=== PATIENT | male | born 1950 | race African-American/Black ===

== ENCOUNTER 2022-06-09 13:44 | Inpatient (IN) | payer MEDICARE, MEDICAID ==
[~2022-06-09] VITALS: Ht 182.9 cm; Wt 75.3 kg
[2022-06-09] MEDS ORDERED: PIPERACILLIN/TAZ 3.375G PREMIX 50 ML IV ONE (14:00)
[2022-06-09] MEDS ORDERED: VANCOMYCIN 1G PREMIX 200 ML IV NR (14:00)
[2022-06-09] MEDS ORDERED: SODIUM CHLORIDE 0.9% 1000ML BAG (SEPSIS BOLUS) IV ONE (14:00)
[2022-06-09] MEDS ORDERED: VANCOMYCIN 1G PREMIX 200 ML IV ONE (14:00)
[2022-06-09 15:57] LABS: BASOPHILS % 0.6 % (0.0-2.0); EOSINOPHILS % 0.8 % (0.0-5.0); HEMATOCRIT. 29.7 % (42.0-52.0); HEMOGLOBIN. 9.4 g/dL (14.0-18.0); LYMPHOCYTES % 13.4 % (20.0-50.0); MEAN CORPUSCULAR HEMOGLOBIN 30.3 pg (28.0-32.0); MEAN CORPUSCULAR VOLUME 96.2 fL (80.0-94.0); MEAN PLATELET VOLUME 9.6 fl (7.4-10.4); MONOCYTES % 12.8 % (2.0-8.0); NEUTROPHILS % 72.4 % (40.0-76.0); PLATELET 184 x1000/uL (130-400); RED BLOOD CELL COUNT 3.09 mill/uL (4.7-6.1); RED CELL DISTRIBUTION WIDTH 17.7 % (11.6-14.6)
[2022-06-09 15:59] LABS: CHLORIDE 126 mEq/L (98-107)
[2022-06-09 16:17] LABS: INR 1.1; PROTHROMBIN TIME 11.9 sec (9.6-11.0)
[2022-06-09] MEDS ORDERED: ASPIRIN 81MG TABLET PO ONE (17:45)
[2022-06-09] MEDS ORDERED: DOCUSATE SODIUM 100MG CAPSULE PO PRN (19:30)
[2022-06-09] MEDS ORDERED: IPRATROPIUM/ALBUTEROL 0.5-3(2.5)MG/3ML NEB HHN PRN (19:30)
[2022-06-09] MEDS ORDERED: ONDANSETRON HCL 4MG/2ML INJ IV PRN (19:30)
[2022-06-09] MEDS ORDERED: ACETAMINOPHEN 325MG TABLET PO PRN ×2 (19:30)
[2022-06-09] MEDS ORDERED: CLONIDINE 0.1MG TABLET PO PRN (19:30)
[2022-06-09 21:00] VITALS: BP_SYST 158; BP_DIAS 94; BP_DIAS 95
[2022-06-10] VITALS: BP 156/73
[2022-06-10 04:00] VITALS: BP 158/81
[2022-06-10 06:47] LABS: BASOPHILS % 0.4 % (0.0-2.0); EOSINOPHILS % 1.2 % (0.0-5.0); HEMATOCRIT. 26.9 % (42.0-52.0); HEMOGLOBIN. 8.6 g/dL (14.0-18.0); LYMPHOCYTES % 14.9 % (20.0-50.0); MEAN CORPUSCULAR HEMOGLOBIN 30.8 pg (28.0-32.0); MEAN CORPUSCULAR VOLUME 96.1 fL (80.0-94.0); MEAN PLATELET VOLUME 10.1 fl (7.4-10.4); NEUTROPHILS % 70.5 % (40.0-76.0); PLATELET 163 x1000/uL (130-400); RED CELL DISTRIBUTION WIDTH 18.2 % (11.6-14.6)
[2022-06-10 07:02] LABS: CHLORIDE 125 mEq/L (98-107)
[2022-06-10 08:00] VITALS: BP 120/71
[2022-06-10 12:00] VITALS: BP 118/65
[2022-06-10] MEDS: DEXTROSE 5% WATER 1,000 ML IV SCH (13:12)
[2022-06-10] MEDS: POTASSIUM CHLORIDE 20MEQ/PACKET GT SCH (13:12)
[2022-06-10 16:00] VITALS: BP 142/86
[2022-06-10 20:00] VITALS: BP 160/87
[2022-06-11] VITALS: BP 158/94
[2022-06-11 04:00] VITALS: BP 158/92
[2022-06-11 07:26] LABS: CHLORIDE 115 mEq/L (98-107)
[2022-06-11 07:42] LABS: HDL CHOLESTEROL 37 mg/dL (40-59); LDL CHOLESTEROL 81 mg/dL (5-100); PHOSPHORUS 2.6 mg/dL (2.5-4.9); TOTAL IRON BINDING CAPACITY 143 ug/dL (250-450)
[2022-06-11 07:43] LABS: HEMOGLOBIN. 8.8 g/dL (14.0-18.0); MEAN CORPUSCULAR HEMOGLOBIN 30.5 pg (28.0-32.0)
[2022-06-11 07:45] LABS: BASOPHILS % 0.4 % (0.0-2.0); EOSINOPHILS % 2.6 % (0.0-5.0); HEMATOCRIT. 27.1 % (42.0-52.0); MEAN CORPUSCULAR VOLUME 93.7 fL (80.0-94.0); MEAN PLATELET VOLUME 10.1 fl (7.4-10.4); MONOCYTES % 11.5 % (2.0-8.0); NEUTROPHILS % 65.5 % (40.0-76.0); PLATELET 151 x1000/uL (130-400)
[2022-06-11 08:00] VITALS: BP 125/80
[2022-06-11 08:07] LABS: FOLIC ACID (FOLATE) SERUM 9.5 ng/mL (>5.38)
[2022-06-11] MEDS: POTASSIUM CHLORIDE 20MEQ/PACKET GT SCH (09:44)
[2022-06-11] MEDS: SODIUM HYPOCHLORITE 0.125% 473ML SOLUTION TOP SCH ×2 (09:45→18:11)
[2022-06-11] MEDS: DEXTROSE 5% WATER 1,000 ML IV SCH (09:45)
[2022-06-11 12:00] VITALS: BP 158/83
[2022-06-11 16:00] VITALS: BP 152/99
[2022-06-11 20:00] VITALS: BP 154/89
[2022-06-11] MEDS ORDERED: LIDOCAINE HCL 2% JELLY 5ML TOP NR (21:19)
[2022-06-12] VITALS (7 sets, daily range): BP systolic 105–140; BP diastolic 50–80
[2022-06-12] MEDS: SODIUM HYPOCHLORITE 0.125% 473ML SOLUTION TOP SCH (09:00)
[2022-06-12] MEDS: POTASSIUM CHLORIDE 20MEQ/PACKET GT SCH (09:17)
[2022-06-12] MEDS: CYANOCOBALAMIN 1000MCG/ML VIAL IM SCH (15:33)
[2022-06-12 15:41] LABS: BASOPHILS % 0.2 % (0.0-2.0); EOSINOPHILS % 0.1 % (0.0-5.0); HEMATOCRIT. 27.5 % (42.0-52.0); LYMPHOCYTES % 8.2 % (20.0-50.0); MEAN CORPUSCULAR HEMOGLOBIN 30.4 pg (28.0-32.0); MEAN CORPUSCULAR VOLUME 92.9 fL (80.0-94.0); MEAN PLATELET VOLUME 9.8 fl (7.4-10.4); MONOCYTES % 8.1 % (2.0-8.0); NEUTROPHILS % 83.4 % (40.0-76.0); PLATELET 166 x1000/uL (130-400); RED BLOOD CELL COUNT 2.96 mill/uL (4.7-6.1); RED CELL DISTRIBUTION WIDTH 16.9 % (11.6-14.6)
[2022-06-12 15:59] LABS: CHLORIDE 109 mEq/L (98-107)
[2022-06-12 16:03] LABS: PHOSPHORUS 2.4 mg/dL (2.5-4.9)
[2022-06-12 16:21] LABS: CLARITY URINE CLEAR (CLEAR); COLOR URINE DARK YELLOW (YELLOW); KETONES URINE TRACE (NEGATIVE); LEUKOCYTE ESTERASE URINE 1+ (NEGATIVE); NITRITE URINE NEGATIVE (NEGATIVE); OCCULT BLOOD URINE NEGATIVE (NEGATIVE); PH URINE 6.5 (4.5-8.0); PROTEIN URINE NEGATIVE (NEGATIVE); SPECIFIC GRAVITY URINE 1.021 (1.005-1.030)
[2022-06-12] MEDS ORDERED: MAGNESIUM 2 G PREMIX 50 ML IV NR (22:30)
[2022-06-12] MEDS ORDERED: SODIUM PHOS,M-BASIC-D-BASIC 15 MM in DEXT 5% WATER 245 ML IV NR (23:00)
[2022-06-13 04:04] VITALS: BP 121/66
[2022-06-13 08:00] VITALS: BP 100/36
[2022-06-13] MEDS: POTASSIUM CHLORIDE 20MEQ/PACKET GT SCH (08:37)
[2022-06-13] MEDS: CYANOCOBALAMIN 1000MCG/ML VIAL IM SCH (08:38)
[2022-06-13] MEDS: SODIUM HYPOCHLORITE 0.125% 473ML SOLUTION TOP SCH ×2 (08:39→17:00)
[2022-06-13 12:00] VITALS: BP 142/87
[2022-06-13 15:52] LABS: BASOPHILS % 0.2 % (0.0-2.0); EOSINOPHILS % 0.5 % (0.0-5.0); HEMATOCRIT. 26.7 % (42.0-52.0); HEMOGLOBIN. 8.6 g/dL (14.0-18.0); LYMPHOCYTES % 9.9 % (20.0-50.0); MEAN CORPUSCULAR HEMOGLOBIN 30.5 pg (28.0-32.0); MEAN CORPUSCULAR VOLUME 94.8 fL (80.0-94.0); MEAN PLATELET VOLUME 10.1 fl (7.4-10.4); MONOCYTES % 7.9 % (2.0-8.0); NEUTROPHILS % 81.5 % (40.0-76.0); PLATELET 141 x1000/uL (130-400); RED BLOOD CELL COUNT 2.82 mill/uL (4.7-6.1); RED CELL DISTRIBUTION WIDTH 17.2 % (11.6-14.6)
[2022-06-13 16:00] VITALS: BP 129/68
[2022-06-13 16:07] LABS: CHLORIDE 111 mEq/L (98-107)
[2022-06-13 16:11] LABS: PHOSPHORUS 2.8 mg/dL (2.5-4.9)
[2022-06-13 20:00] VITALS: BP 138/72
[2022-06-14] VITALS: BP 138/75
[2022-06-14 08:00] VITALS: BP 142/87
[2022-06-14] MEDS: POTASSIUM CHLORIDE 20MEQ/PACKET GT SCH (10:46)
[2022-06-14] MEDS: CYANOCOBALAMIN 1000MCG/ML VIAL IM SCH (10:46)
[2022-06-14] MEDS: SODIUM HYPOCHLORITE 0.125% 473ML SOLUTION TOP SCH ×2 (10:46→17:00)
[2022-06-14 12:00] VITALS: BP 138/81
[2022-06-14 16:00] VITALS: BP 138/87
[2022-06-14 16:42] LABS: BASOPHILS % 0.2 % (0.0-2.0); EOSINOPHILS % 0.5 % (0.0-5.0); HEMATOCRIT. 29.5 % (42.0-52.0); HEMOGLOBIN. 9.5 g/dL (14.0-18.0); MEAN CORPUSCULAR HEMOGLOBIN 30.2 pg (28.0-32.0); MEAN CORPUSCULAR VOLUME 93.3 fL (80.0-94.0); MEAN PLATELET VOLUME 9.9 fl (7.4-10.4); MONOCYTES % 10.2 % (2.0-8.0); NEUTROPHILS % 77.1 % (40.0-76.0); PLATELET 178 x1000/uL (130-400); RED BLOOD CELL COUNT 3.16 mill/uL (4.7-6.1); RED CELL DISTRIBUTION WIDTH 17.2 % (11.6-14.6)
[2022-06-14 17:00] LABS: CHLORIDE 109 mEq/L (98-107)
[2022-06-14 17:06] LABS: PHOSPHORUS 2.9 mg/dL (2.5-4.9)
[2022-06-14 20:00] VITALS: BP 153/82
[2022-06-15] VITALS: BP 150/86
[2022-06-15 04:00] VITALS: BP 150/90
[2022-06-15 06:09] LABS: BASOPHILS % 0.4 % (0.0-2.0); EOSINOPHILS % 0.8 % (0.0-5.0); HEMATOCRIT. 28.4 % (42.0-52.0); HEMOGLOBIN. 9.2 g/dL (14.0-18.0); LYMPHOCYTES % 12.4 % (20.0-50.0); MEAN CORPUSCULAR HEMOGLOBIN 30.2 pg (28.0-32.0); MEAN CORPUSCULAR VOLUME 93.4 fL (80.0-94.0); MEAN PLATELET VOLUME 9.8 fl (7.4-10.4); MONOCYTES % 10.6 % (2.0-8.0); NEUTROPHILS % 75.8 % (40.0-76.0); PLATELET 182 x1000/uL (130-400); RED BLOOD CELL COUNT 3.04 mill/uL (4.7-6.1); RED CELL DISTRIBUTION WIDTH 17.5 % (11.6-14.6)
[2022-06-15 06:27] LABS: CHLORIDE 111 mEq/L (98-107)
[2022-06-15 08:00] VITALS: BP 157/96
[2022-06-15] MEDS: SODIUM HYPOCHLORITE 0.125% 473ML SOLUTION TOP SCH ×2 (10:47→17:00)
[2022-06-15] MEDS: POTASSIUM CHLORIDE 20MEQ/PACKET GT SCH (10:47)
[2022-06-15] MEDS: CYANOCOBALAMIN 1000MCG/ML VIAL IM SCH (10:47)
[2022-06-15] MEDS ORDERED: CYAN-50 MT (11:19)
[2022-06-15] MEDS ORDERED: LEVO750T46 MT (11:19)
[2022-06-15 12:00] VITALS: BP 156/95
[2022-06-15] MEDS ORDERED: LEVOFLOXACIN 750MG PREMIX 150 ML IV SCH (13:00)
[2022-06-15 15:22] VITALS: BP 157/96
[2022-06-15 16:00] VITALS: BP 150/93
[2022-06-25] MEDS ORDERED: CYANOCOBALAMIN 1000MCG/ML VIAL IM SCH (09:00)
== END 2022-06-15 20:30 | disposition home health service (06) | DRG 951 ==
LOC: ER 13:44 → 8WST 17:40 → EDBEDREQ 17:53 → EDBEDREQTM 17:53 → ENRESERV 18:37
PROVIDERS: ADMIT Internal Medicine; ATTEND Internal Medicine
PROC: 0KBP0ZZ Excision of Left Hip Muscle, Open Approach (ICD-10-PCS; principal; 2022-06-12)
PROC: 0KBN0ZZ Excision of Right Hip Muscle, Open Approach (ICD-10-PCS; 2022-06-12)
PROC: 4A00X4Z Measurement of Central Nervous Electrical Activity, External Approach (ICD-10-PCS; 2022-06-12)
DX: E87.0 Hyperosmolality and hypernatremia (principal); G92.8 Other toxic encephalopathy; L89.154 Pressure ulcer of sacral region, stage 4; E46 Unspecified protein-calorie malnutrition; N17.9 Acute kidney failure, unspecified; R53.2 Functional quadriplegia; J18.9 Pneumonia, unspecified organism; E83.39 Other disorders of phosphorus metabolism; D63.1 Anemia in chronic kidney disease; E83.42 Hypomagnesemia; E53.8 Deficiency of other specified B group vitamins; E87.6 Hypokalemia; I12.9 Hypertensive chronic kidney disease with stage 1 through stage 4 chronic kidney disease, or unspecified chronic kidney disease; R29.810 Facial weakness; N18.1 Chronic kidney disease, stage 1; D50.9 Iron deficiency anemia, unspecified; D53.9 Nutritional anemia, unspecified; R00.0 Tachycardia, unspecified; R13.10 Dysphagia, unspecified; E86.0 Dehydration; R47.01 Aphasia; Z68.22 Body mass index [BMI] 22.0-22.9, adult; Z85.118 Personal history of other malignant neoplasm of bronchus and lung; Z93.1 Gastrostomy status; Z82.49 Family history of ischemic heart disease and other diseases of the circulatory system; K00.7 Teething syndrome
CPT/HCPCS: 36415; 70551; 71045; 80048; 80053; 80061; 81003; 82040; 82607; 82728; 82746; 83036; 83540; 83550; 83605; 83735; 83930; 84100; 84134; 84145; 84295; 84443; 84484; 85025; 86850; 86900; 87426; 92610; 93005; 94640; 97161; 97162; 97165; 97166; 97530; 99291; J1956; J2543; J3370; J3420; J3475; J3490; J7030; J7060; J7070